=== PATIENT | male | born 1960 | race Two or more races ===

== ENCOUNTER 2024-07-16 18:41 | Emergency (ER) | payer SELFPAY ==
[2024-07-16] MEDS: Lidocaine 1% with EPINEPHrine 1:100,000 10 ML MDV INJECT ONE (20:21)
== END 2024-07-16 21:31 | disposition home or self-care (01) ==
LOC: MW.ED 18:41
DX: S01.01XA Laceration without foreign body of scalp, initial encounter (principal); I10 Essential (primary) hypertension; Z88.0 Allergy status to penicillin; Z79.899 Other long term (current) drug therapy; W22.8XXA Striking against or struck by other objects, initial encounter; Y93.89 Activity, other specified
CPT/HCPCS: 12002; 99282